=== PATIENT | female | born 2000 ===

== ENCOUNTER → 2023-08-19 06:58 | Outpatient (CLI) | payer OTHER ==
[2023-08-19 08:40] LABS: HEMATOCRIT 40.6 % (36.0-45.00); HEMOGLOBIN 12.9 g/dL (12.0-15.00); MEAN CELL VOLUME 82.7 fL (80.00-100.00); MEAN CORPUSCULAR HEMOGLOBIN 26.3 pg (27.00-32.0); MEAN CORPUSCULAR HGB CONC 31.8 g/dl (32.0-36.0); PLATELET COUNT 258 K/uL (150-450); RED BLOOD COUNT 4.91 M/uL (4.00-6.00); RED CELL DISTRIBUTION WIDTH 13.4 % (11.5-14.5)
[2023-08-19 09:14] LABS: INR 1.05; PARTIAL THROMBOPLASTIN TIME 29.1 SECONDS (22.0-34.0)
[2023-08-19 09:35] LABS: ALBUMIN 3.7 gm/dL (3.4-5.0); BILIRUBIN TOTAL 1.28 mg/dL (0.3-1.2); CALCIUM 8.8 mg/dL (8.5-10.1); CHOL HDL RATIO 1.9 (0-5.0); CREATININE SERUM 0.75 mg/dL (0.55-1.02); GFR 94.15; GLOBULINA 3.3 G/DL (2.4-3.5); POTASSIUM 3.81 mEq/L (3.5-5.1); T4 TOTAL 7.72 UG/DL (4.8-13.9); TSH 2.71 uIU/mL (0.358-3.74)
== END | disposition home or self-care (01) ==
LOC: LAB 06:58
PROVIDERS: ATTEND Internal Medicine
DX: Z01.89 Encounter for other specified special examinations (principal)

== ENCOUNTER 2023-08-19 07:33 | Outpatient (CLI) | payer OTHER | END 2023-08-19 07:44 | disposition home or self-care (01) | LOC: SONOGRAMA 07:33 | PROVIDERS: ATTEND Internal Medicine | DX: R10.84 Generalized abdominal pain (principal) ==

== ENCOUNTER 2024-09-04 08:30 | Outpatient (CLI) | payer OTHER ==
[2024-09-04 09:38] LABS: HEMATOCRIT 40.1 % (36.0-45.00); HEMOGLOBIN 13.2 g/dL (12.0-15.00); MEAN CELL VOLUME 81.8 fL (80.00-100.00); MEAN CORPUSCULAR HEMOGLOBIN 26.9 pg (27.00-32.0); MEAN CORPUSCULAR HGB CONC 32.9 g/dl (32.0-36.0); PLATELET COUNT 261 K/uL (150-450); RED BLOOD COUNT 4.91 M/uL (4.00-6.00); RED CELL DISTRIBUTION WIDTH 13.2 % (11.5-14.5)
[2024-09-04 09:42] LABS: PH,URINE 6.5 (5.0-8.0); URINE APPEARANCE Clear; URINE BILIRRUBIN Negative (NEGATIVE); URINE BLOOD Negative; URINE COLOR Yellow; URINE GLUCOSE Negative (NEGATIVE); URINE KETONE Negative (NEGATIVE); URINE LEUKOCYTE Trace; URINE NITRATE Negative; URINE PROTEIN Negative (NEGATIVE); URINE UROBILINOGEN 0.2 E.U./dl
[2024-09-04 09:46] LABS: URINE BACTERIA 331.3 uL (0.0-1933); URINE EPITHELIAL CELLS 16.9 uL (0.0-38.8); URINE WBC 12.3 uL (0.0-23.2)
[2024-09-04 10:01] LABS: URINE RBC 1.6 uL (0.0-20.8)
[2024-09-04 10:08] LABS: INR 1.04; PARTIAL THROMBOPLASTIN TIME 28.1 SECONDS (22.0-34.0); PROTHROMBIN TIME 11.3 SECONDS (9.0-11.5)
[2024-09-04 11:07] LABS: CREATININE SERUM 0.66 mg/dL (0.55-1.02); GFR 108.25; POTASSIUM 4.2 mEq/L (3.5-5.1)
== END 2024-09-04 08:46 | disposition home or self-care (01) ==
LOC: LAB 08:30
DX: E11.39 Type 2 diabetes mellitus with other diabetic ophthalmic complication (principal); I15.8 Other secondary hypertension; D68.32 Hemorrhagic disorder due to extrinsic circulating anticoagulants; D69.9 Hemorrhagic condition, unspecified; I10 Essential (primary) hypertension